=== PATIENT | female | born 1945 | race Caucasian/White ===

== ENCOUNTER 2017-03-25 11:31 | Outpatient (CLI) | payer MEDICARE, OTHER | END 2017-03-25 11:32 | disposition home or self-care (01) | DX: G47.33 Obstructive sleep apnea (adult) (pediatric) (principal) | CPT/HCPCS: 99214; G0463 ==

== ENCOUNTER 2018-06-17 11:29 | Outpatient (CLI) | payer MEDICARE, OTHER | END 2018-06-17 11:30 | disposition home or self-care (01) | LOC: SC 11:29 | PROVIDERS: ATTEND Nurse Practitioner Family | DX: G47.33 Obstructive sleep apnea (adult) (pediatric) (principal) | CPT/HCPCS: 99214; G0463; 99212 ==

== ENCOUNTER 2022-07-15 10:17 | Outpatient (CLI) | payer MEDICARE, OTHER ==
--- NOTE | 2022-07-15 11:20 | SLEEP CARE CONSULTATION ---
Information from patient questionnaire entered by Lore Khanna MA. I have reviewed and concur with the information entered by Lore Khanna MA. This document represents the service I personally performed and the decisions made by , Isa Qiu ARNP. History of Present Illness Service Date and Time: 07/15/2022 1017 Reason for Visit: New patient (last seen 06/2018, ), sleep apnea on CPAP therapy, Re-establish care Chief Complaint: reports: Snoring, Excessive daytime sleepiness, Fatigue, Frequent awakenings at night Date of Onset: cpap user 5 years Usual bedtime: 8746-5003 pm Time it takes to fall asleep: 30 - 60 minutes Snores at night: Yes Observed to quit breathing while asleep: Yes Sleeps alone due to snoring: Yes Number of times waking at night: 2 Reasons for waking at night: reports: Snoring, Bathroom Toss, Turn, or Twitch while sleeping: Yes Recalls having dreams: No Usually gets out of bed at: 7718-0159 Feels refreshed in the morning: Yes Morning headache: No Sleepy or fatigued during the day: Yes Ever fallen asleep while driving: No Takes day naps: Yes Dreams during day naps: No Prior sleep studies: Yes Year and Where: 12/2014 [facility] Type of Sleep Study: Polysomnography Additional HPI information: NILESH NINA was previously diagnosed to have mild, AHI 10.4, obstructive sleep apnea-hypopnea syndrome and comes in to re-establish today for CPAP therapy. - Parasomnia Symptoms Ever been unable to move upon waking from sleep: No Walks in sleep: No Talks in sleep: No Ever acted out dreams in sleep: No Ever felt weak in the knees when startled or emotional: No Bothered by creepy, crawly, restless sensations in legs: Yes Problems with memory or concentration: No CPAP Compliance Data - Data Reviewed with Patient Average duration of nightly device use: 7 HOURS 2 MINUTES Compliance rate %: 97.2 (179/180 days used; 100% 30/30 days) Current pressure setting (cmH2O): 9 Humidity settin Average residual AHI: 1.8 Average large leak: 2 MINUTES 53 SECONDS Compliance data discussion: She has been consistently using her CPAP. She uses [employer] for her supplies. She has also been using a So Clean with her machine. I advised her of FDA not recommending using these type of devices. She voiced understanding. She uses a Full Face mask, a Respironics hybrid with hose out the front. Subjective Patient concerns: denies: aerophagia, mask discomfort, air blowing in eyes, mask leak noise, condensation in mask/hose, nasal congestion, dry mouth, nose, throat, epistaxis, other Observed to snore while using device: Yes Current pressure setting perceived as: comfortable (but sometimes feel too low) On therapy, patient: reports: sleeping better, awakening more refreshed, being more awake and alert during the day, more rested overall. 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 Patient is and lives in [place]. Have you smoked in the past 12 months: No Cigarettes per day (20/pack): 20 Years of smokin Quit date: 1967 Smoking Pack Years: 10.0 Alcohol use: Yes Alcohol amount and frequency: 1 x weekly Caffeine use: Yes Caffeine amount and frequency: 1-2 x monthly Family History Family history of sleep disordered breathing: Yes Family Hx Sleep Apnea: Father: Snoring, Sibling: Snoring Allergies and Home Medications Known drug allergies: Yes (see list) Drug allergies reviewed: Yes (see list) Home medication list reviewed: Yes (see list) Allergy and home medication list: Medications: Ibuprofen 600mg oral tablet, prn Levothyroxine Sodium 88mg hydroCHLOROthiazide 25 mg Metroprolol Tartrate 50mg Telmisartan 40mg oral Vitamin D Allergies Codeine Morphine verified by BENTLEY Bernabe, 07-15-2022 1030 Review of Systems Weight gain over past 5 years: 20 Weight loss over past 5 years: 20 Cardiovascular: reports: high blood pressure Respiratory: reports: shortness of breath Urinary: reports: incontinence, urgency Ear/Nose/Throat: reports: dry mouth/throat Endocrine: reports: too hot or cold Musculoskeletal: reports: joint pain, muscle pain or cramping Physical Exam Vital signs obtained and entered by: BENTLEY BERNABE, Blood Pressure: 116/72 (r 18, p 67, right) Cuff size: wrist Heart Rate: 65 O2 Saturation: 96 Height: 5 ft 5 in Weight: 260 lb (clothes) Weight change since last visit: losing using diet - cabbage diet Body Mass Index: 43.2 BMI Classification: Morbidly Obese Neck circumference: 15 (inches) Impression and Plan 1. Obstructive Sleep Apnea-Hypopnea Syndrome, mild, with good treatment compliance and good apnea control. On CPAP therapy, the patient has better sleep quality and is more rested overall. Patient has RemStar 60 series by [email or web address]. Patient states she is not good on the computer and she did not register her device. Patient denies any black particles seen in machine or hoses, any unusual odors coming from device. Patient has not experienced any physical symptoms such as upper airway irritation, headache, skin or eye irritation, asthma, nausea/vomiting, difficulty breathing or chest pain. If patient is not able to sleep due to waking up choking, gasping for air or other respiratory distress that they may decide to continue using it until it is either replaced or repaired. Since the patients current machine is at least 5 years old, the patient is opting to update their device with a device that is not on the recall. We will also update her supplies. Patient states she feels like she needs more air sometimes and her is telling her she is snoring regularly. I will adjust her pressure to a range of 8-10 cmH2O to reduce snoring and increase her comfort. Patient voiced understanding and agreement with plan. Patient's apnea severity and rationale for treatment to reduce apnea, improve sleep quality and reduce cardiovascular and cerebrovascular events was reviewed. I also reviewed the benefit of consistent device use of CPAP for hypertension. 2. Obesity, unspecified. Currently patients BMI is 43.2. Obesity increases the risk of apnea, CPAP pressure requirements and overall health risks especially cardiovascular and diabetes. Thus patient is advised to lose weight. Weight loss can be done with reducing portion size, reducing refined foods and balancing content with vegetables, fruit and whole grain foods. In addition, patient encouraged to get regular exercise. The patient's CPAP pressure range should accommodate some weight loss. Symptoms to report for additional pressure adjustment discussed. * Update machine * Update supplies * Change [auto] CPAP pressure to [8-10] cmH2O * Notify me if snoring with mask or feeling that the pressure is too much or too little * Continue to try to lose weight * Call this office if any problems using CPAP * Return for follow one month after obtaining new device, or sooner if concerns arise Counseling Topics: Spare mask, Weight loss health impact Visit Type: In Office Time Spent with Patient (minutes): 35 Provider Statement: I spent 100% of the Face to Face Visit with the patient with greater than 50% spent counseling the patient and coordination of care.
[2022-07-15 11:21] VITALS: BP 116/72
== END 2022-07-15 10:18 | disposition home or self-care (01) ==
LOC: SC 10:17
PROVIDERS: ATTEND Nurse Practitioner Family
DX: G47.33 Obstructive sleep apnea (adult) (pediatric) (principal); E66.01 Morbid (severe) obesity due to excess calories; Z68.41 Body mass index [BMI] 40.0-44.9, adult; Z87.891 Personal history of nicotine dependence
CPT/HCPCS: 99203; G0463; 99212

== ENCOUNTER 2024-07-20 08:24 | Outpatient (CLI) | payer MEDICARE, OTHER ==
--- NOTE | 2024-07-20 09:02 | Sleep Patient Instructions ---
Sleep Center Visit Summary - Patient Visit Information Reason for Visit: Annual follow-up - Patient Instructions Additional Instructions: You will continue with CPAP therapy with pressure set at 8-10 cmH2O. A supply prescription will be updated with your DME supplier. We encourage you to continue to try to lose weight. Please follow up with the sleep care office in 1 year. - Clinic Information Contact: [facility] [address] [place] [address] [email or web address] T: [phone]
--- NOTE | 2024-07-20 09:06 | SLEEP CARE CONSULTATION ---
Information from patient questionnaire entered by Sarah Zimmerman. I have reviewed and concur with the information entered by Sarah Zimmerman. This document represents the service I personally performed and the decisions made by , Isa Qiu ARNP. History of Present Illness Service Date and Time: 07/20/2024 08 Previous diagnosis: Mild, Obstructive Sleep Apnea-Hypopnea Syndrome AHI: 10.4 (2014) Reason for follow up: annual (Last seen 06/2022) Equipment type: CPAP (Airsense 10, s/u 11/06) Equipment obtained from: [employer] (getting supplies) Mask style: Full face Backup mask available: Yes (old mask) Last cushion change: about a year Prior sleep studies: Yes Year and Where: 12/2014 [facility] Type of Sleep Study: Polysomnography HPI additional information: NILESH NINA was diagnosed to have mild, AHI 10.4, obstructive sleep apnea- hypopnea syndrome and returned today for CPAP therapy annual follow-up. Sleep Study - Results Type of Sleep Study: Polysomnography Prior sleep studies: Yes Year and Where: 12/2014 [facility] CPAP Compliance Data - Data Reviewed with Patient Average duration of nightly device use: 8 h 4 min Compliance rate %: 99 (180/180 days used) Current pressure setting (cmH2O): 8 - 10 Average residual AHI: 2.1 Central apnea: 0.3 Obstructive apnea: 1.3 Hypopnea: 0.4 Average large leak: 0 L/min Subjective Patient concerns: reports: air blowing in eyes (just needs to adjust mask), mask leak noise, dry mouth, nose, throat (dry mouth - oral venting). denies: aerophagia, mask discomfort, condensation in mask/hose, nasal congestion, epistaxis Observed to snore while using device: Yes Current pressure setting perceived as: too low On therapy, patient: reports: sleeping better, awakening more refreshed, being more awake and alert during the day, more rested overall. denies: drowsiness while driving Initial [place] Sleepiness Scale score: 8 (07/15/2022) Current [place] Sleepiness Scale score: 6 (07/20/2024) Allergies and Home Medications Known drug allergies: Yes (as listed) Drug allergies reviewed: Yes Home medication list reviewed: Yes (no changes) Allergy and home medication list: Allergies codeine Allergy (Verified 07/20/24 08:42) morphine Allergy (Verified 07/20/24 08:42) Review of Systems Review of systems same as previous: No (bad knee - right; had injection for pain) Physical Exam Vital signs obtained and entered by: Isa Morrell NP Blood Pressure: 132/70 Cuff size: long (left arm) Heart Rate: 59 O2 Saturation: 96 Height: 5 ft 5 in Weight: 264 lb Weight change since last visit: 4 lb gain Body Mass Index: 43.9 BMI Classification: Morbidly Obese Impression and Plan 1. Obstructive Sleep Apnea-Hypopnea Syndrome, mild, with good treatment compliance and good apnea control. On CPAP therapy, the patient has better sleep quality and is more rested overall. Patient has significant improvement of their sleep apnea and is satisfied with current CPAP therapy. Patient states she gets some dry mouth but knows that her mouth is coming open and mask. Her has also complained of occasional snoring. We discussed that oral venting can dry out your mouth and also sound like snoring. She voiced understanding. She had felt that the pressure may be a little too low and we discussed that her apnea control is very good. She decided she would not like a pressure change today. She has good apnea control and no pressure changes necessary. Patient's apnea severity and rationale for treatment to reduce apnea, improve sleep quality and reduce cardiovascular and cerebrovascular events was reviewed. I also reviewed the benefit of consistent device use of CPAP for hypertension. 2. Obesity, unspecified. Currently patients BMI is 43.9. Obesity increases the risk of apnea, CPAP pressure requirements and overall health risks especially cardiovascular and diabetes. Thus patient is advised to continue to try to lose weight. * Continue auto CPAP pressure at 8-10 cmH2O * Update supply prescription. * Notify me if snoring with mask or feeling that the pressure is too much or too little * Attempt to lose weight * Call this office if any problems using CPAP * Return for follow up in 12 months, or sooner if concerns arise Counseling Topics: Spare mask, Weight loss health impact Prescriptions: Device supplies Follow up with Sleep Care in: 1 year Visit Type: In Office Time Spent with Patient (minutes): 23 Provider Statement: I spent 100% of the Face to Face Visit with the patient with greater than 50% spent counseling the patient and coordination of care.
[2024-07-20 09:07] VITALS: BP 132/70; O2SAT 96
== END 2024-07-20 08:25 | disposition home or self-care (01) ==
LOC: SC 08:24
PROVIDERS: ATTEND Nurse Practitioner Family
DX: G47.33 Obstructive sleep apnea (adult) (pediatric) (principal); E66.01 Morbid (severe) obesity due to excess calories; Z68.41 Body mass index [BMI] 40.0-44.9, adult
CPT/HCPCS: 99213; G0463; 99212